=== PATIENT | male | born 1950 | race Caucasian/White ===

== ENCOUNTER 2017-02-12 12:09 | Emergency (ER) | payer OTHER, BC ==
[~2017-02-12] VITALS: Ht 182.9 cm; Wt 119.4 kg
[2017-02-12 13:03] LABS: HEMATOCRIT 26.6 % (38.0-50.0); MCH 29.3 PG (29.0-34.0); MCV 91.7 FL (86-99); MEAN PLAT.VOLUME 9.9 uM^3 (9.0-12.4); PLATELET COUNT 119 K/uL (156-360)
[2017-02-12 13:13] LABS: CHLORIDE 98 mEq/L (99-109); POTASSIUM 4.2 mEq/L (3.7-5.4); SODIUM 132 mEq/L (136-147)
[2017-02-12 13:15] LABS: GLUCOSE 108 mg/dL (70-99)
[2017-02-12 13:17] LABS: ANION GAP 7 MEQ/L (2-14)
[2017-02-12 13:19] LABS: GFR ESTIMATE (CALCULATED) > 59 mL/min/
[2017-02-12 13:20] LABS: UREA NITROGEN (BUN) 6 mg/dL (9-23)
[2017-02-12 13:24] LABS: TROP-I INTERPRETATION NEGATIVE; TROPONIN-I < 0.01 ng/mL (0.0-0.30)
[2017-02-12 13:49] LABS: INTER. NORMALIZED RATIO 1.3; PROTHROMBIN TIME 13.3 (9.2-11.2); PTT 29.9 (25-32)
[2017-02-12 14:44] LABS: D-DIMER ELISA 0.92 mg/L FEU (< 0.57)
[2017-02-12 15:43] LABS: ADD MIUA? NO; BILIRUBIN NEGATIVE; BLOOD NEGATIVE; COLOR YELLOW ((YELLOW)); GLUCOSE (STRIP) NEGATIVE; KETONES NEGATIVE; LEUKOCYTES NEGATIVE; NITRITE NEGATIVE; PROTEIN (STRIP) NEGATIVE; SPECIFIC GRAVITY 1.006 (1.000-1.030)
[2017-02-12 18:10] VITALS: BP 132/85
== END 2017-02-12 18:12 | disposition home or self-care (01) ==
LOC: EME 12:09
PROVIDERS: Physician Assistant
DX: D64.9 Anemia, unspecified (principal); I11.0 Hypertensive heart disease with heart failure; I50.9 Heart failure, unspecified; J44.9 Chronic obstructive pulmonary disease, unspecified; Z95.0 Presence of cardiac pacemaker
CPT/HCPCS: 71020; 71275; 74177; 80048; 81003; 83880; 84484; 85027; 85379; 85610; 85730; 93005; 94640; 99281; 99284; J1940

== ENCOUNTER 2017-05-20 09:35 | Emergency (ER) | payer OTHER, BC ==
[~2017-05-20] VITALS: Ht 182.9 cm; Wt 108.4 kg
[~2017-05-20 09:35] MED LIST: ANORO ELLIPTA1 EACH IH; ASPIR 8181 M1 PO; CATAPRES-TTS 11 EACH TD; COREG25 M1 PO; DALIRESP500 MCG PO; DIOVAN160 MG PO; FLOVENT DISKUS1 DIS1 IH; FOLIC ACID1 MG PO; FUROSEMIDE80 MG PO; KLOR-CON20 MEQ PO; METOLAZONE5 MG PO; MEVACOR10 M1 PO; OMEPRAZOLE40 M1 PO; PREDNISONE10 MG PO; PROAIR RESPICL90 MCG IH; VITAMIN B122500 MCG PO
[2017-05-20 10:45] LABS: HEMATOCRIT 22.3 % (38.0-50.0); MCH 28.1 PG (29.0-34.0); MCHC 31.8 G/DL (30.0-36.0); MCV 88.1 FL (86-99); NRBC (%) 0.4 /100 WBC (0-0); PLATELET COUNT 125 K/uL (156-360); RBC DIS.WIDTH-CV 18.6 % (11.8-14.6); RBC DIS.WIDTH-SD 59.3 % (39-53); RED BLOOD COUNT 2.53 M/uL (4.00-5.50); WHITE BLOOD COUNT 5.4 K/uL (4.1-10.2)
[2017-05-20 10:49] LABS: MEAN PLAT.VOLUME 10.2 uM^3 (9.0-12.4)
[2017-05-20 11:01] LABS: CHLORIDE 105 mEq/L (99-109); POTASSIUM 4.6 mEq/L (3.7-5.4); SODIUM 141 mEq/L (136-147)
[2017-05-20 11:03] LABS: GLUCOSE 123 mg/dL (70-99)
[2017-05-20 11:04] LABS: ANION GAP 10 MEQ/L (2-14)
[2017-05-20 11:07] LABS: GFR ESTIMATE (CALCULATED) 54 mL/min/; UREA NITROGEN (BUN) 40 mg/dL (9-23)
[2017-05-20 11:26] LABS: ADD MIUA? YES; BILIRUBIN NEGATIVE; BLOOD NEGATIVE; COLOR AMBER ((YELLOW)); GLUCOSE (STRIP) NEGATIVE; KETONES NEGATIVE; LEUKOCYTES NEGATIVE; NITRITE NEGATIVE; PROTEIN (STRIP) NEGATIVE; SPECIFIC GRAVITY 1.023 (1.000-1.030)
[2017-05-20 11:30] LABS: BACTERIA RARE /HPF; EPITHELIAL CELLS NONE SEEN /HPF; MUCUS NONE SEEN /LPF; UCUL ADDED? NO; WHITE BLOOD CELLS 0-5 /HPF (0-5)
[2017-05-20 14:01] LABS: SAMPLE HEMOLYSIS CHECK 0; SAMPLE ICTERIC CHECK 0; SAMPLE LIPEMIA CHECK 0
[2017-05-20 14:06] LABS: LACTATE DEHYDROGENASE 374 IU/L (20-246)
[2017-05-20 14:37] LABS: IMM.RETIC FRACTION 36.2 % (3-19); RETIC HGB EQUIVALENT 28.6 (28-36)
[2017-05-20 14:49] LABS: ABS NEUTROPHIL COUNT 4.4; ANISOCYTOSIS 1+; EOSINOPHIL ABS CT 0.1; PLAT.SUFFICIENCY ADEQUATE; POIKILOCYTOSIS 1+; RETICULOCYTE COUNT 2.1 % (0.5-1.8)
[2017-05-20 15:00] VITALS: BP 118/60
== END 2017-05-20 16:30 | disposition short-term general hospital (02) ==
LOC: EME 09:35
PROVIDERS: Emergency Medicine
DX: D64.9 Anemia, unspecified (principal); R06.00 Dyspnea, unspecified; D68.61 Antiphospholipid syndrome; J44.9 Chronic obstructive pulmonary disease, unspecified; I10 Essential (primary) hypertension; Z79.82 Long term (current) use of aspirin; Z79.52 Long term (current) use of systemic steroids; Z87.891 Personal history of nicotine dependence
CPT/HCPCS: 80048; 81003; 83010 90; 83615; 85007; 85027; 85045; 86850; 86900; 86901; 93005; 99281; 99285